=== PATIENT | male | born 1950 | race African-American/Black ===

== ENCOUNTER 2022-10-19 07:31 | Day surgery (SDC) | payer OTHER, BC ==
[2022-10-12 17:04] VITALS: BMI 25.1
[2022-10-19] MEDS ORDERED: PROPOFOL 120 ML ONE (07:38)
[2022-10-19] MEDS ORDERED: GLYCOPYRROLATE 0.2 MG/1 ML VIAL ONE (08:07)
[2022-10-19 09:07] VITALS: RESP 16; TEMP 97.7
[2022-10-19 09:40] VITALS: BP 124/82; PULSE 66
== END 2022-10-19 09:40 | disposition home or self-care (01) ==
LOC: FASU-ENDO 07:31
PROVIDERS: ATTEND Internal Medicine Gastroenterology
PROC: 0DBN8ZX Excision of Sigmoid Colon, Via Natural or Artificial Opening Endoscopic, Diagnostic (ICD-10-PCS; 2022-10-19)
PROC: 0DB68ZX Excision of Stomach, Via Natural or Artificial Opening Endoscopic, Diagnostic (ICD-10-PCS; 2022-10-19)
PROC: 3E0H8KZ Introduction of Other Diagnostic Substance into Lower GI, Via Natural or Artificial Opening Endoscopic (ICD-10-PCS; 2022-10-19)
PROC: 0DBN8ZX Excision of Sigmoid Colon, Via Natural or Artificial Opening Endoscopic, Diagnostic (ICD-10-PCS; principal; 2022-10-19 08:21)
DX: Z12.11 Encounter for screening for malignant neoplasm of colon (principal); D12.5 Benign neoplasm of sigmoid colon; K57.30 Diverticulosis of large intestine without perforation or abscess without bleeding; K29.50 Unspecified chronic gastritis without bleeding

== ENCOUNTER 2024-07-17 08:15 | Day surgery (SDC) | payer OTHER, BC ==
[2024-07-15 11:29] VITALS: BMI 25.7
[2024-07-17 08:38] VITALS: TEMP 97.3
[2024-07-17 10:14] VITALS: RESP 16
[2024-07-17 10:23] VITALS: BP 100/63; PULSE 66
== END 2024-07-17 10:48 | disposition home or self-care (01) ==
LOC: FASU-ENDO 08:15
PROVIDERS: ATTEND Internal Medicine Gastroenterology
PROC: 0DB98ZX Excision of Duodenum, Via Natural or Artificial Opening Endoscopic, Diagnostic (ICD-10-PCS; 2024-07-17)
PROC: 0DB68ZX Excision of Stomach, Via Natural or Artificial Opening Endoscopic, Diagnostic (ICD-10-PCS; 2024-07-17)
PROC: 0DB58ZX Excision of Esophagus, Via Natural or Artificial Opening Endoscopic, Diagnostic (ICD-10-PCS; 2024-07-17)
PROC: 0DBN8ZX Excision of Sigmoid Colon, Via Natural or Artificial Opening Endoscopic, Diagnostic (ICD-10-PCS; principal; 2024-07-17 09:32)
DX: Z12.11 Encounter for screening for malignant neoplasm of colon (principal); D12.5 Benign neoplasm of sigmoid colon; K57.90 Diverticulosis of intestine, part unspecified, without perforation or abscess without bleeding; K29.50 Unspecified chronic gastritis without bleeding; Z86.0109 Personal history of other colon polyps
CPT/HCPCS: 88305-TC; 88342-TC